=== PATIENT | male | born 1945 | race Caucasian/White ===

== ENCOUNTER 2021-03-07 17:11 | Emergency (ER) | payer OTHER ==
[~2021-03-07 17:11] MED LIST: ACTOS45 MG PO; AMARYL2 MG PO; ATARAX25 MG PO; AUGMENTIN 875-1 EACH PO; BUSPAR5 MG PO; COLACE100 MG PO; COREG12.5 MG PO; COZAAR100 MG PO; DULOXETINE HCL20 MG PO; ELAVIL50 MG PO; FLOMAX 0.4 MG0.4 MG PO; HCTZ12.5 MG PO; HYDROCODON-ACE1 EAC2 PO; HYDROXYZINE PAM25 MG PO; JANUVIA50 MG PO; KLOR-CON M2020 MEQ PO; LASIX20 MG PO; LIPITOR20 MG PO; MEDROL 4MG DOSEP4 MG PO; MIDODRINE HCL2.5 MG PO; MIRALAX17 GM PO; NORCO 7.5-3251 EACH PO; PLAVIX75 MG PO; SYMBICORT 16010.2 GM INH; TRELEGY ELLIPT1 EACH INH; ULTRAM50 MG PO; VENTOLIN HFA IN18 GM INH
[2021-04-05] MEDS ORDERED: HYDROCODON-ACE1 EAC2 PO (15:10)
[2021-06-07] MEDS ORDERED: HYDROCODON-ACE1 EAC2 PO (17:19)
[2021-06-07] MEDS ORDERED: TRAZODONE 50MG50 MG PO (17:19)
== END 2021-03-07 19:05 | disposition home or self-care (01) ==
LOC: FER 17:11
DX: S22.31XA Fracture of one rib, right side, initial encounter for closed fracture (principal); E11.9 Type 2 diabetes mellitus without complications; Z88.8 Allergy status to other drugs, medicaments and biological substances; W07.XXXA Fall from chair, initial encounter; W22.03XA Walked into furniture, initial encounter; Y93.89 Activity, other specified; Y92.009 Unspecified place in unspecified non-institutional (private) residence as the place of occurrence of the external cause
CPT/HCPCS: 71101

== ENCOUNTER 2021-03-09 15:11 | Emergency (ER) | payer OTHER ==
[2021-03-09 18:59] LABS: BILIRUBIN NEGATIVE (NEGATIVE); BLOOD TRACE-INTACT Ery/uL (NEGATIVE); CLARITY CLEAR (CLEAR); COLOR YELLOW (YELLOW); GLUCOSE (U) 2+ mg/dL (NORMAL); LEUKOCYTES NEGATIVE Leu/uL (NEGATIVE); NITRITE NEGATIVE (NEGATIVE); PROTEIN 2+ mg/dL (NEGATIVE); SPECIFIC GRAVITY >=1.030 (1.001-1.030); UROBILINOGEN 0.2 mg/dL (0.2-1.0)
[2021-03-09 19:04] LABS: SQUAMOUS EPITHELIAL CELLS RARE; URINARY RBC RARE
[2021-03-09 19:13] LABS: BASOPHIL 0.6 % (0-2); EOSINOPHIL 2.3 % (0-7); HCT 38.7 % (42.0-52.0); HGB 12.9 g/dl (13.2-18.0); LYMPHOCYTE 16.7 % (15-48); MCHC 33.3 g/dL (32.0-36.0); MONOCYTE 11.5 % (0-12); MPV 10.3 fL (6.0-9.5); NEUTROPHIL 68.5 % (41-80); NRBC 0; PLT 192 K/uL (150-400); RBC 4.45 M/uL (4.70-6.00); WBC 7.8 K/uL (4.0-10.5)
[2021-03-09 19:29] LABS: ALBUMIN 3.6 g/dL (3.4-5.0); BUN/CREAT RATIO (CALC) 20.6 RATIO; CREATININE 0.97 mg/dL (0.67-1.17); GLOBULIN (CALCULATION) 3.2 g/dL; POTASSIUM 4.4 mmol/L (3.5-5.1); TOTAL PROTEIN 6.8 g/dL (6.4-8.2)
[2021-03-09] MEDS ORDERED: PREDNISONE 20MG20 MG PO (20:08)
[2021-04-05] MEDS ORDERED: HYDROCODON-ACE1 EAC2 PO (15:10)
[2021-06-07] MEDS ORDERED: HYDROCODON-ACE1 EAC2 PO (17:19)
[2021-06-07] MEDS ORDERED: TRAZODONE 50MG50 MG PO (17:19)
== END 2021-03-09 20:30 | disposition home or self-care (01) ==
LOC: FER 15:11
PROVIDERS: Nurse Practitioner Family
DX: S22.41XA Multiple fractures of ribs, right side, initial encounter for closed fracture (principal); R41.82 Altered mental status, unspecified; I25.2 Old myocardial infarction; E11.9 Type 2 diabetes mellitus without complications; M54.9 Dorsalgia, unspecified; G89.29 Other chronic pain; Z79.891 Long term (current) use of opiate analgesic; Z88.8 Allergy status to other drugs, medicaments and biological substances; W19.XXXA Unspecified fall, initial encounter
CPT/HCPCS: 36415; 70450; 71046; 80053; 81001; 85025; J1100; J1885

== ENCOUNTER 2021-06-26 08:02 | Emergency (ER) | payer OTHER ==
[~2021-06-26 08:02] MED LIST changes: +PREDNISONE 20MG20 MG PO; +TRAZODONE 50MG50 MG PO
[2021-06-26 09:03] LABS: BILIRUBIN NEGATIVE (NEGATIVE); BLOOD TRACE-INTACT Ery/uL (NEGATIVE); CLARITY CLEAR (CLEAR); COLOR YELLOW (YELLOW); GLUCOSE (U) NORMAL (NORMAL); LEUKOCYTES NEGATIVE Leu/uL (NEGATIVE); NITRITE NEGATIVE (NEGATIVE); PROTEIN NEGATIVE (NEGATIVE); pH 6.5 (5.0-9.0)
[2021-06-26 09:05] LABS: AMPHETAMINES NEGATIVE (NEGATIVE); BARBITURATES NEGATIVE (NEGATIVE); ECSTASY (MDMA) NEGATIVE (NEGATIVE); MARIJUANA (THC) NEGATIVE (NEGATIVE); METHADONE NEGATIVE (NEGATIVE); OPIATES POSITIVE (NEGATIVE); OXYCODONE NEGATIVE (NEGATIVE)
[2021-06-26 09:10] LABS: SQUAMOUS EPITHELIAL CELLS RARE; URINARY WBC RARE
[2021-06-26 09:15] LABS: BASOPHIL 0.9 % (0-2); EOSINOPHIL 7.4 % (0-7); HCT 37.3 % (42.0-52.0); HGB 12.3 g/dl (13.2-18.0); LYMPHOCYTE 14.6 % (15-48); MCH 28.8 pg (25.0-31.0); MCV 87.4 fL (78.0-100.0); MONOCYTE 7.9 % (0-12); MPV 10.1 fL (6.0-9.5); NRBC 0; PLT 136 K/uL (150-400); RBC 4.27 M/uL (4.70-6.00); RDW 13.2 % (11.5-14.0); WBC 4.3 K/uL (4.0-10.5)
[2021-06-26 09:54] LABS: ALBUMIN 3.8 g/dL (3.4-5.0); ALKALINE PHOSHATASE 89 U/L (46-116); ALT 18 U/L (16-63); AST 21 U/L (15-37); BILIRUBIN - TOTAL 0.9 mg/dL (0.2-1.0); BUN 17 mg/dL (7-18); BUN/CREAT RATIO (CALC) 16.3 RATIO; CHLORIDE 106 mmol/L (98-107); CO2 (BICARBONATE) 29 mmol/L (21-32); CREATININE 1.04 mg/dL (0.67-1.17); GLOBULIN (CALCULATION) 2.8 g/dL; GLUCOSE 106 mg/dL (74-106); POTASSIUM 4.9 mmol/L (3.5-5.1); TOTAL PROTEIN 6.6 g/dL (6.4-8.2)
== END 2021-06-26 16:00 | disposition other institution (70) ==
LOC: FER 08:02
PROVIDERS: Emergency Medicine
DX: F03.91 Unspecified dementia, unspecified severity, with behavioral disturbance (principal); I45.10 Unspecified right bundle-branch block; E11.9 Type 2 diabetes mellitus without complications; I10 Essential (primary) hypertension; Z20.822 Contact with and (suspected) exposure to COVID-19
CPT/HCPCS: 36415; 70450; 71045; 80053; 80305; 81001; 84484; 85025; 93005; G0480; J2060; U0002

== ENCOUNTER 2022-07-20 10:13 | Emergency (ER) | payer OTHER ==
[~2022-07-20 10:13] MED LIST changes: +GEODON20 MG PO; +POTASSIUM20 MEQ/11 PO; +REMERON15 MG PO; +VITAMIN B-121000 MC1 PO
[2022-07-20 10:41] LABS: BASOPHIL 0.8 % (0-2); EOSINOPHIL 0.8 % (0-7); HGB 13.6 g/dl (13.2-18.0); MCH 29.8 pg (25.0-31.0); MCHC 33.2 g/dL (32.0-36.0); MCV 89.7 fL (78.0-100.0); MONOCYTE 11.6 % (0-12); MPV 11.7 fL (6.0-9.5); NEUTROPHIL 74.4 % (41-80); NRBC 0; RBC 4.57 M/uL (4.70-6.00); RDW 13.2 % (11.5-14.0)
[2022-07-20 10:43] LABS: PLT 81 K/uL (150-400)
[2022-07-20 11:01] LABS: ALBUMIN 3.8 g/dL (3.4-5.0); BILIRUBIN - TOTAL 0.7 mg/dL (0.2-1.0); BUN/CREAT RATIO (CALC) 12.7 RATIO; CREATININE 1.5 mg/dL (0.67-1.17); GLOBULIN (CALCULATION) 2.7 g/dL; POTASSIUM 4.5 mmol/L (3.5-5.1); TOTAL PROTEIN 6.5 g/dL (6.4-8.2)
[2022-07-20 14:18] LABS: INFLUENZA A NAA NEGATIVE (NEGATIVE)
[2022-07-20 14:25] LABS: CORONAVIRUS 2019 SARS-COV-2 POSITIVE (NEGATIVE)
[2022-07-20] MEDS ORDERED: PAXLOVID 150-11 EACH PO ×2 (14:51→16:12)
[2022-07-20] MEDS ORDERED: MEGACE40 MG PO ×2 (14:51→16:12)
== END 2022-07-20 16:14 | disposition home or self-care (01) ==
LOC: FER 10:13
PROVIDERS: Emergency Medicine
DX: U07.1 COVID-19 (principal); R63.0 Anorexia; F03.90 Unspecified dementia, unspecified severity, without behavioral disturbance, psychotic disturbance, mood disturbance, and anxiety; Z87.891 Personal history of nicotine dependence; Z88.8 Allergy status to other drugs, medicaments and biological substances
CPT/HCPCS: 36415; 71045; 80053; 83605; 84145; 85025; 87040; 93005; 94760; U0002

== ENCOUNTER 2022-07-26 17:59 | Emergency (ER) | payer OTHER ==
[~2022-07-26 17:59] MED LIST changes: +MEGACE40 MG PO; +PAXLOVID 150-11 EACH PO
[2022-07-26 18:45] LABS: BASOPHIL 0.7 % (0-2); EOSINOPHIL 4.9 % (0-7); HCT 38.8 % (42.0-52.0); HGB 12.9 g/dl (13.2-18.0); MCH 29.4 pg (25.0-31.0); MCHC 33.2 g/dL (32.0-36.0); MCV 88.4 fL (78.0-100.0); MONOCYTE 10.4 % (0-12); MPV 10.7 fL (6.0-9.5); NEUTROPHIL 52.3 % (41-80); NRBC 0; PLT 131 K/uL (150-400); RBC 4.39 M/uL (4.70-6.00); RDW 13.1 % (11.5-14.0); WBC 2.7 K/uL (4.0-10.5)
[2022-07-26 19:01] LABS: ALBUMIN 3.4 g/dL (3.4-5.0); BILIRUBIN - TOTAL 0.5 mg/dL (0.2-1.0); BUN/CREAT RATIO (CALC) 15.1 RATIO; CREATININE 1.39 mg/dL (0.67-1.17); GLOBULIN (CALCULATION) 2.6 g/dL; POTASSIUM 4.7 mmol/L (3.5-5.1)
[2022-07-26 20:17] LABS: BILIRUBIN 1+ mg/dL (NEGATIVE); BLOOD NEGATIVE Ery/uL (NEGATIVE); CLARITY CLEAR (CLEAR); COLOR YELLOW (YELLOW); GLUCOSE (U) NORMAL (NORMAL); LEUKOCYTES NEGATIVE Leu/uL (NEGATIVE); NITRITE NEGATIVE (NEGATIVE); PROTEIN NEGATIVE (NEGATIVE); UROBILINOGEN 0.2 mg/dL (0.2-1.0); pH 5.5 (5.0-9.0)
== END 2022-07-26 23:04 | disposition home or self-care (01) ==
LOC: FER 17:59
PROVIDERS: Emergency Medicine
DX: I10 Essential (primary) hypertension (principal); E86.0 Dehydration
CPT/HCPCS: 36415; 71045; 80053; 81003; 85025; J7030

== ENCOUNTER 2022-08-09 18:26 | Day surgery (SDCO) | payer OTHER ==
[~2022-08-09] VITALS: Ht 190.5 cm; Wt 77.3 kg
[2022-08-09 20:43] LABS: BASOPHIL 1.5 % (0-2); EOSINOPHIL 6.1 % (0-7); HCT 35.5 % (42.0-52.0); HGB 11.9 g/dl (13.2-18.0); LYMPHOCYTE 27.5 % (15-48); MCH 29.5 pg (25.0-31.0); MCHC 33.5 g/dL (32.0-36.0); MCV 88.1 fL (78.0-100.0); MONOCYTE 11.5 % (0-12); MPV 11.4 fL (6.0-9.5); NEUTROPHIL 52.9 % (41-80); NRBC 0; PLT 139 K/uL (150-400); RBC 4.03 M/uL (4.70-6.00); RDW 13.1 % (11.5-14.0); WBC 4.1 K/uL (4.0-10.5)
[2022-08-09 20:51] LABS: INR 1.21 (0.9-1.2); PROTHROMBIN TIME 14.9 SECONDS (11.9-13.9); PTT 28.1 SECONDS (24.9-34.6)
[2022-08-09 20:53] LABS: D-DIMER 0.83 ug/mLFEU (0.00-0.41)
[2022-08-09 21:00] LABS: ALBUMIN 3.6 g/dL (3.4-5.0); BILIRUBIN - TOTAL 0.5 mg/dL (0.2-1.0); BUN/CREAT RATIO (CALC) 14.9 RATIO; CREATININE 1.41 mg/dL (0.67-1.17); GLOBULIN (CALCULATION) 2.8 g/dL; POTASSIUM 4.6 mmol/L (3.5-5.1); TOTAL PROTEIN 6.4 g/dL (6.4-8.2)
[2022-08-10] MEDS ORDERED: TRAZODONE 50MG50 MG PO (00:17)
[2022-08-10] MEDS ORDERED: CELEXA20 MG PO (00:20)
[2022-08-10] MEDS ORDERED: RISPERDAL 0.5M0.5 MG PO (00:21)
[2022-08-10] MEDS ORDERED: ELAVIL50 MG PO (00:21)
[2022-08-10] MEDS ORDERED: STOOL SOFT-STI1 EACH PO (00:23)
[2022-08-10 06:54] LABS: BASOPHIL 0.9 % (0-2); HCT 33.1 % (42.0-52.0); HGB 11.2 g/dl (13.2-18.0); LYMPHOCYTE 22.7 % (15-48); MCH 29.8 pg (25.0-31.0); MCHC 33.8 g/dL (32.0-36.0); MONOCYTE 11.5 % (0-12); MPV 11.6 fL (6.0-9.5); NEUTROPHIL 59.6 % (41-80); NRBC 0; PLT 118 K/uL (150-400); RBC 3.76 M/uL (4.70-6.00); RDW 13.1 % (11.5-14.0); WBC 3.2 K/uL (4.0-10.5)
[2022-08-10 07:21] LABS: CREATININE 1.36 mg/dL (0.67-1.17); POTASSIUM 4.4 mmol/L (3.5-5.1)
[2022-08-10 10:36] LABS: IRON % SATURATION 23.8 %SAT (20-50)
[2022-08-10 11:17] LABS: FOLIC ACID (SERUM) 12.8 ng/mL (8.6-58.9); FT4 (FREE T4) 1.3 ng/dL (0.76-1.46)
[2022-08-11 07:05] LABS: EOSINOPHIL 4.1 % (0-7); HCT 31.6 % (42.0-52.0); HGB 10.6 g/dl (13.2-18.0); LYMPHOCYTE 18.7 % (15-48); MCH 29.5 pg (25.0-31.0); MCHC 33.5 g/dL (32.0-36.0); MONOCYTE 7.8 % (0-12); MPV 11.7 fL (6.0-9.5); NEUTROPHIL 68.2 % (41-80); NRBC 0; PLT 116 K/uL (150-400); RBC 3.59 M/uL (4.70-6.00); RDW 13.4 % (11.5-14.0); WBC 4.1 K/uL (4.0-10.5)
[2022-08-11 07:28] LABS: BUN 15 mg/dL (7-18); BUN/CREAT RATIO (CALC) 11.5 RATIO; CHLORIDE 109 mmol/L (98-107); CO2 (BICARBONATE) 23 mmol/L (21-32); CREATININE 1.31 mg/dL (0.67-1.17); GLUCOSE 97 mg/dL (74-106); PHOSPHORUS 3.2 mg/dL (2.6-4.7); POTASSIUM 3.9 mmol/L (3.5-5.1)
[2022-08-11 07:29] LABS: C-REACTIVE PROTEIN < 0.20 mg/dL (<=0.90)
[2022-08-12] MEDS ORDERED: MEGACE ORA6 TSP/1 OZ PO (15:27)
== END 2022-08-12 16:25 | disposition home or self-care (01) ==
LOC: FER 18:26 → FMS 22:46
PROVIDERS: Internal Medicine; Nurse Practitioner; ADMIT Emergency Medicine
DX: R05.9 Cough, unspecified (principal); G93.3 Postviral and related fatigue syndromes; R06.00 Dyspnea, unspecified; R53.81 Other malaise; R53.1 Weakness; R41.89 Other symptoms and signs involving cognitive functions and awareness; G47.9 Sleep disorder, unspecified; R68.83 Chills (without fever); U09.9 Post COVID-19 condition, unspecified; E86.0 Dehydration; E11.22 Type 2 diabetes mellitus with diabetic chronic kidney disease; I13.0 Hypertensive heart and chronic kidney disease with heart failure and stage 1 through stage 4 chronic kidney disease, or unspecified chronic kidney disease; I50.30 Unspecified diastolic (congestive) heart failure; N18.30 Chronic kidney disease, stage 3 unspecified; R63.0 Anorexia; G30.9 Alzheimer's disease, unspecified; F02.80 Dementia in other diseases classified elsewhere, unspecified severity, without behavioral disturbance, psychotic disturbance, mood disturbance, and anxiety; I25.10 Atherosclerotic heart disease of native coronary artery without angina pectoris; I25.2 Old myocardial infarction; Z95.5 Presence of coronary angioplasty implant and graft; Z85.46 Personal history of malignant neoplasm of prostate; Z79.84 Long term (current) use of oral hypoglycemic drugs; Z79.899 Other long term (current) drug therapy
CPT/HCPCS: 36415; 36600; 71045; 71250; 80048; 80053; 82607; 82746; 82803; 83540; 83550; 83605; 83880; 84100; 84145; 84439; 84443; 84484; 85025; 85379; 85610; 85730; 86140; 93005; 94010; 94760; 97162; 97165; 97530; G0378; J1650; J2543; J2916; J2920; J7120